=== PATIENT | male | born 1955 | race Caucasian/White ===

== ENCOUNTER 2017-12-25 21:02 | Emergency (ER) | payer OTHER ==
[~2017-12-25] VITALS: Ht 185.4 cm; Wt 64.4 kg
[~2017-12-25 21:02] MED LIST: MEDROL DOSEPAK4 MG PO; NORCO 325 MG-51 TAB PO; PEN-VK500 MG PO; PERIDEX 480 ML480 ML PO; VIBRAMYCIN100 MG PO
[2017-12-25] MEDS ORDERED: SEPTDS PO (21:23)
[2017-12-25] MEDS ORDERED: NAPROSYN500 MG PO (21:23)
== END 2017-12-25 21:45 | disposition home or self-care (01) ==
LOC: ED 21:02
DX: L02.214 Cutaneous abscess of groin (principal)

== ENCOUNTER 2019-06-05 13:10 | Emergency (ER) | payer OTHER ==
[~2019-06-05] VITALS: Ht 185.4 cm; Wt 64.4 kg
[~2019-06-05 13:10] MED LIST changes: +NAPROSYN500 MG PO; +SEPTDS PO
[2019-06-05] MEDS ORDERED: ZITHROMAX250 MG PO (14:50)
[2019-06-05] MEDS ORDERED: PROAIR HFA8.5 GM INH (14:50)
[2019-06-05] MEDS ORDERED: PREDNISONE50 MG PO (14:50)
== END 2019-06-05 15:03 | disposition home or self-care (01) ==
LOC: ED 13:10
DX: J20.9 Acute bronchitis, unspecified (principal); F17.200 Nicotine dependence, unspecified, uncomplicated; Z79.2 Long term (current) use of antibiotics; Z79.899 Other long term (current) drug therapy; Z90.49 Acquired absence of other specified parts of digestive tract

== ENCOUNTER 2019-11-13 14:01 | Emergency (ER) | payer OTHER ==
[~2019-11-13] VITALS: Ht 185.4 cm; Wt 68.9 kg
[~2019-11-13 14:01] MED LIST changes: +PREDNISONE50 MG PO; +PROAIR HFA8.5 GM INH; +ZITHROMAX250 MG PO
[2019-11-13 14:44] LABS: BASO # 0.1 10*3/uL (0.0-0.1); EOS # 0.3 10*3/uL (0.0-0.4); EOS % 3.7 % (1.0-4.0); HEMATOCRIT 39.3 % (42.0-52.0); LYMPH # 3.1 10*3/uL (1.3-4.4); LYMPH % 36.5 % (27.0-41.0); MEAN CELL VOLUME 94.2 fl (80.0-94.0); MEAN CORPUSCULAR HGB 31.2 pg (27.0-31.0); MEAN CORPUSCULAR HGB CONC 33.1 g/dl (33.0-37.0); MEAN PLATELET VOLUME 9.1 fl (9.6-12.3); MONO # 0.7 10*3/uL (0.1-1.0); MONO % 8.2 % (3.0-9.0); NEUT # 4.3 10*3/uL (2.3-7.9); NEUT % 50.4 % (47.0-73.0); PLATELET COUNT AUTOMATED 152 10*3/uL (130-400); RED BLOOD COUNT 4.17 10*6/uL (4.50-5.90); RED CELL DISTRI WIDTH 13.3 % (0-14.5); WHITE BLOOD COUNT 8.6 10*3/uL (4.8-10.8)
[2019-11-13 15:00] LABS: ACT PARTIAL THROMBO TIME 25.1 SECONDS (20.0-32.1)
[2019-11-13 15:12] LABS: ALBUMIN 3.2 gm/dl (3.1-4.5); BUN 16 mg/dl (7-24); CHLORIDE 105 mmol/L (98-107); CREATININE 1.14 mg/dL (0.70-1.30); POTASSIUM 3.9 mmol/L (3.5-5.1); SGOT/AST 22 IU/L (3-35); SGPT/ALT 19 U/L (12-78); SODIUM 140 mmol/L (136-145)
[2019-11-13 15:15] LABS: ALKALINE PHOSPHATASE 46 U/L (45-117); TOTAL PROTEIN 6.9 gm/dL (6.4-8.2)
[2019-11-13 15:16] LABS: TROPONIN I < 0.015 ng/ml (<0.045)
== END 2019-11-13 17:45 | disposition left against medical advice (07) ==
LOC: ED 14:01
PROVIDERS: Emergency Medicine
DX: R07.9 Chest pain, unspecified (principal); J44.9 Chronic obstructive pulmonary disease, unspecified; F17.200 Nicotine dependence, unspecified, uncomplicated; Z90.49 Acquired absence of other specified parts of digestive tract

== ENCOUNTER 2020-09-13 16:00 | Emergency (ER) | payer MEDICARE ==
[~2020-09-13] VITALS: Ht 185.4 cm; Wt 64.4 kg
== END 2020-09-13 16:55 | disposition home or self-care (01) ==
LOC: ED 16:00
DX: S60.352A Superficial foreign body of left thumb, initial encounter (principal); X58.XXXA Exposure to other specified factors, initial encounter; Y93.89 Activity, other specified; Y92.89 Other specified places as the place of occurrence of the external cause; Y99.8 Other external cause status

== ENCOUNTER 2021-05-25 11:42 | Emergency (ER) | payer MEDICARE ==
[~2021-05-25] VITALS: Ht 185.4 cm; Wt 63.5 kg
[2021-05-25] MEDS ORDERED: IBUPROFEN600 MG PO (14:51)
== END 2021-05-25 14:53 | disposition home or self-care (01) ==
LOC: ED 11:42
DX: S60.222A Contusion of left hand, initial encounter (principal); Z90.49 Acquired absence of other specified parts of digestive tract; W22.8XXA Striking against or struck by other objects, initial encounter; Y93.89 Activity, other specified; Y92.89 Other specified places as the place of occurrence of the external cause; Y99.9 Unspecified external cause status

== ENCOUNTER 2021-06-07 20:10 | Emergency (ER) | payer MEDICARE ==
[~2021-06-07] VITALS: Ht 185.4 cm; Wt 64.4 kg
[~2021-06-07 20:10] MED LIST changes: +IBUPROFEN600 MG PO
== END 2021-06-08 01:11 | disposition home or self-care (01) ==
LOC: ED 20:10
DX: R51.9 Headache, unspecified (principal)